=== PATIENT | female | born 2000 | race Two or more races ===

== ENCOUNTER 2021-05-01 15:53 | Emergency (ER) | payer OTHER ==
[~2021-05-01] VITALS: Ht 172.7 cm; Wt 95.2 kg
[2021-05-01] MEDS ORDERED: ONDANSETRON ODT8 MG PO (18:53)
== END 2021-05-01 19:05 | disposition home or self-care (01) ==
LOC: ED 15:53
DX: K52.9 Noninfective gastroenteritis and colitis, unspecified (principal); Z20.822 Contact with and (suspected) exposure to COVID-19
CPT/HCPCS: 80053; 81001; 84703; 85025; 96374; 99284-25; C9803; J2405; J7030; U0003